=== PATIENT | male | born 2005 | race Caucasian/White ===

== ENCOUNTER 2025-06-03 12:53 | Inpatient (IN) | payer OTHER ==
[~2025-06-03 12:53] MED LIST: Iopamidol 300 61% 100 ML VIAL FS ONE
[2025-06-03] MEDS ORDERED: Ondansetron PF 4 MG/2 ML Vial ONE (13:35)
[2025-06-03] MEDS ORDERED: Pantoprazole 40 MG VIAL ONE (13:35)
[2025-06-03] MEDS ORDERED: Mag-Al 1200 mg/1200 mg/30 ML UDCUP ONE (13:40)
[2025-06-03] MEDS ORDERED: Lidocaine Viscous Sol 2% 15 ml UD Cup ONE (13:40)
[2025-06-03 13:44] LABS: #Basophils 0.03 10x3/uL (0.0-0.2); #Eosinophils 0.03 10x3/uL (0.0-0.5); #Monocytes 1.22 10x3/uL (0.0-1.1); #Neutrophils 16.65 10x3/uL (1.5-8.4); %Basophils 0.2 % (0.0-2.0); %Eosinophils 0.2 % (0.0-6.0); %Lymphocytes 3.5 % (18.0-47.0); %Monocytes 6.5 % (0.0-10.0); %Neutrophils 89.2 % (40.0-75.0); Hematocrit 39.8 % (38.8-50.0); Hemoglobin 12.6 g/dL (13.5-17.5); Mean Corpuscular Hemoglobin 23.3 pg (27.0-33.0); Mean Corpuscular Volume 73.7 fL (81.2-95.1); Platelet Count 358 10x3/uL (150-450); Red Blood Cell (RBC) Count 5.40 10x6/uL (4.32-5.72); White Blood Cell (WBC) Count 18.67 10x3/uL (3.5-10.5)
[2025-06-03 13:53] LABS: ALT (SGPT) Less than 7 U/L (Less than 45); AST (SGOT) 12 U/L (11-34); Albumin 3.9 g/dL (3.1-4.5); Alkaline Phosphatase 90 U/L (50-130); Anion Gap 15 mmol/L (10-20); BUN (Urea Nitrogen) 10 mg/dL (8.9-20.6); Bilirubin, Total 0.8 mg/dL (0.3-1.2); Calc. Creatinine Clearance 0 mL/min (70-130); Calcium 9.4 mg/dL (7.8-10.44); Carbon Dioxide 26 mmol/L (22-29); Chloride 101 mmol/L (98-107); Globulin 3.3 g/dL (2.4-3.5); Glucose 104 mg/dL (70-105); Potassium 4.2 mmol/L (3.5-5.1); Sodium 138 mmol/L (136-145)
[2025-06-03 14:02] LABS: Microcytosis SLIGHT = 6-15 cells (100X) (0-5/hpf)
[2025-06-03 14:05] LABS: Lipase Less than 4 U/L (8-78)
[2025-06-03] MEDS ORDERED: Electrolyte Replacement Protocol 1 EACH FS SCH (18:30)
[2025-06-03 19:29] LABS: Iron 11 ug/dL (65-175); Iron Binding Capacity, Total 329 mcg/dL (261-462); Transferrin, Serum 263 mg/dL (174-364)
[2025-06-03 19:30] VITALS: BMI 20.3
[2025-06-03] MEDS ORDERED: PHOS-NAK 1 PKT PACK PO PRN (19:45)
[2025-06-03] MEDS ORDERED: Potassium Chloride 20 MEQ in Premix 1 BAG IVPB PRN (19:45)
[2025-06-03 19:48] LABS: Ferritin 67.33 ng/mL (22-322)
[2025-06-03] MEDS: Ondansetron PF 4 MG/2 ML Vial IVP PRN (20:02)
[2025-06-03 23:11] LABS: Vitamin B12 361.0 pg/mL (211-911)
[2025-06-04 06:06] LABS: Anion Gap 13 mmol/L (10-20); BUN (Urea Nitrogen) 11 mg/dL (8.9-20.6); Calc. Creatinine Clearance 94 mL/min (70-130); Calcium 8.9 mg/dL (7.8-10.44); Carbon Dioxide 25 mmol/L (22-29); Chloride 104 mmol/L (98-107); Glucose 91 mg/dL (70-105); Magnesium 1.9 mg/dL (1.7-2.2); Potassium 4.2 mmol/L (3.5-5.1); Sodium 138 mmol/L (136-145)
[2025-06-04 06:10] LABS: Hematocrit 38.0 % (38.8-50.0); Hemoglobin 11.8 g/dL (13.5-17.5); Mean Corpuscular Hemoglobin 22.9 pg (27.0-33.0); Mean Corpuscular Volume 73.8 fL (81.2-95.1); Platelet Count 305 10x3/uL (150-450); Red Blood Cell (RBC) Count 5.15 10x6/uL (4.32-5.72); White Blood Cell (WBC) Count 11.85 10x3/uL (3.5-10.5)
[2025-06-04 06:27] LABS: Hep B Surf Ag Non-Reactive S/CO (NonReactive)
[2025-06-04 06:43] LABS: #Basophils 0.05 10x3/uL (0.0-0.2); #Eosinophils 0.08 10x3/uL (0.0-0.5); #Monocytes 1.05 10x3/uL (0.0-1.1); #Neutrophils 9.69 10x3/uL (1.5-8.4); %Basophils 0.4 % (0.0-2.0); %Eosinophils 0.7 % (0.0-6.0); %Lymphocytes 7.8 % (18.0-47.0); %Monocytes 8.9 % (0.0-10.0); %Neutrophils 81.8 % (40.0-75.0); Platelet Adequacy Comment Appears Adequate; Poikilocytosis SLIGHT = 6-15 cells (100X) (0-5/hpf); Stomatocytes SLIGHT = 2-5 cells (100X) (0-1/hpf)
[2025-06-04] MEDS: Pantoprazole 40 MG VIAL IVP SCH (09:04)
[2025-06-04] MEDS: Magnesium 2 GM/50 ML(in water) 2 GM in Premix 1 BAG IVPB PRN (10:47)
[2025-06-04 13:46] LABS: HBSAB Concentration Less than 8.00 mIU/mL; Hep B Core Total Ab NONREACTIVE (NonReactive); Hep B Core Total Index 0.11 S/CO (0-0.79); Hep C IgG Ab NONREACTIVE S/CO (NonReactive); Hep C Index 0.10 S/CO (0-0.79)
[2025-06-04 15:00] VITALS: BMI 20.3
[2025-06-04] MEDS: Acetaminophen 325 MG TAB PO PRN (17:15)
[2025-06-05 04:58] LABS: #Basophils 0.03 10x3/uL (0.0-0.2); #Eosinophils 0.20 10x3/uL (0.0-0.5); #Monocytes 0.66 10x3/uL (0.0-1.1); #Neutrophils 5.51 10x3/uL (1.5-8.4); %Basophils 0.4 % (0.0-2.0); %Eosinophils 2.8 % (0.0-6.0); %Lymphocytes 10.6 % (18.0-47.0); %Monocytes 9.2 % (0.0-10.0); %Neutrophils 76.6 % (40.0-75.0); Hematocrit 32.0 % (38.8-50.0); Hemoglobin 9.9 g/dL (13.5-17.5); Mean Corpuscular Hemoglobin 23.2 pg (27.0-33.0); Mean Corpuscular Volume 75.1 fL (81.2-95.1); Platelet Count 262 10x3/uL (150-450); Red Blood Cell (RBC) Count 4.26 10x6/uL (4.32-5.72); White Blood Cell (WBC) Count 7.19 10x3/uL (3.5-10.5)
[2025-06-05 05:11] LABS: ALT (SGPT) Less than 7 U/L (Less than 45); AST (SGOT) 9 U/L (11-34); Albumin 2.8 g/dL (3.1-4.5); Alkaline Phosphatase 70 U/L (50-130); Anion Gap 12 mmol/L (10-20); BUN (Urea Nitrogen) 9 mg/dL (8.9-20.6); Bilirubin, Total 0.6 mg/dL (0.3-1.2); Calc. Creatinine Clearance 108 mL/min (70-130); Calcium 8.6 mg/dL (7.8-10.44); Carbon Dioxide 26 mmol/L (22-29); Chloride 105 mmol/L (98-107); Globulin 2.9 g/dL (2.4-3.5); Glucose 84 mg/dL (70-105); Magnesium 2.0 mg/dL (1.7-2.2); Potassium 4.1 mmol/L (3.5-5.1); Sodium 139 mmol/L (136-145)
[2025-06-05 07:44] VITALS: BP 116/55; TEMP 98.6
== END 2025-06-05 11:35 | disposition left against medical advice (07) | DRG 387 ==
LOC: CSHERS 12:53 → CSHTELE 19:26
PROVIDERS: ADMIT Family Medicine; ATTEND Internal Medicine
DX: K50.014 Crohn's disease of small intestine with abscess (principal); D64.9 Anemia, unspecified; G43.909 Migraine, unspecified, not intractable, without status migrainosus; K21.9 Gastro-esophageal reflux disease without esophagitis; Z98.890 Other specified postprocedural states; Z53.29 Procedure and treatment not carried out because of patient's decision for other reasons
CPT/HCPCS: 36415; 74177; 76705; 80048; 80053; 82306; 82607; 82728; 83540; 83550; 83690; 83735; 84100; 84466; 85025; 86480; 86704; 86706; 86708; 86803; 87340; 94762; 96365; 96375; J2270; J2272; J2405; J2470; J2543; J3475; J7030; J7120; Q9967